=== PATIENT | male | born 1940 | race African-American/Black ===

== ENCOUNTER 2018-03-13 08:08 | Inpatient (IN) ==
[2018-03-16] MEDS ORDERED: Naloxone Inj 0.4 MG/ML Vial IV.PUSH PRN (01:08)
[2018-03-16] MEDS ORDERED: Bisacodyl 10 MG Supp RECTAL PRN (01:09)
[2018-03-16] MEDS ORDERED: Melatonin 5 MG Tablet PO PRN (01:16)
[2018-03-16] MEDS ORDERED: Dextrose 50% in Water 50 ML Vial IV.PUSH PRN (01:22)
[2018-03-16] MEDS: Piperacil/Tazo 3.375 GM Premix 50 ML IV.SIG SCH ×3 (02:32→17:54)
[2018-03-16] MEDS ORDERED: Furosemide 40 MG Tablet PO SCH (09:00)
[2018-03-16] MEDS: Azithromycin Inj 500 MG in Sodium Chlor 0.9% Inj 250 ML IV.SIG SCH (09:40)
[2018-03-16] MEDS: Carvedilol 6.25 MG Tablet PO SCH ×2 (09:41→22:23)
[2018-03-16] MEDS: Lactobacillus Acidophilus/L. Spores Tablet PO SCH ×3 (09:42→17:54)
[2018-03-16] MEDS: Pantoprazole Sodium 20 MG DR Tablet PO SCH (09:42)
[2018-03-16] MEDS: Docusate Sodium 100 MG Capsule PO SCH ×2 (09:42→22:23)
[2018-03-16] MEDS: Baclofen 10 MG Tablet PO SCH ×3 (09:42→17:54)
[2018-03-16] MEDS: Multivitamin/Minerals Therapeutic Tablet PO SCH (09:43)
[2018-03-16] MEDS: Polysaccharide Iron Complex 150 MG Capsule PO SCH (09:43)
[2018-03-16] MEDS: predniSONE 20 MG Tablet PO SCH ×2 (09:44→22:23)
[2018-03-16] MEDS: Insulin NovoLOG Aspart Correctional Sugar Inj SQ SCH ×4 (09:59→22:20)
--- NOTE | 2018-03-16 10:06 | P.PN ---
Subjective Interval history: Nursing denies any deterioration since last night and reports that from. Time to time the patient takes his mask off and appears to be saturating at 90-92%. No clear record that the patient was actually being weaned as instructed since yesterday. Physical Exam Vital signs: Vital Signs 03/16/18 03:01 03/16/18 04:26 03/16/18 08:00 Temperature 99.2 F 98.2 F Pulse Rate 76 63 69 Respiratory Rate 20 16 16 Blood Pressure 139/65 154/67 H Pulse Oximetry 93 L 94 L Intake & Output 03/15/18 03/16/18 03/16/18 18:59 06:59 18:59 Intake Total 290 / 290 Output Total 500 / 500 Balance -210 / -210 Weight 70.1 kg Intake: IV 50 / 50 Zosyn 3.375 GM Premix 50 ML @ 50 / 50 100 mls/hr IV.SIG Q8H [facility] Rx#: [id number] Oral 240 / 240 Output: Urine 500 / 500 Narrative: Still has awfully diminished breath sounds bilaterally even when I instructed patient to take a deep breath to which she does cooperate disability No lower extremity edema on the left lower leg, wearing the Vent[facility] mask [facility] on his face Results - Labs CBC & Chem 7: 03/15/18 12:30 03/17/18 12:10 Laboratory Results - last 24 hr 03/13/18 03/13/18 03/13/18 08:24 08:24 08:24 WBC RBC Hgb Hct MCV MCH MCHC RDW Plt Count MPV Neut % (Auto) Lymph % (Auto) [place] % (Auto) Eos % (Auto) Baso % (Auto) Neut # (Auto) Lymph # (Auto) [place] # (Auto) Eos # (Auto) Baso # (Auto) CBC Comment PT 10.0 INR 1.0 APTT 24.0 L Sodium 147 H Potassium 4.1 Chloride 106 Carbon Dioxide 32.9 H Anion Gap 8 BUN 27 H Creatinine 1.69 H Estimated GFR 48 L POC Glucose Random Glucose 127 H Lactic Acid 1.1 Calcium 8.5 Phosphorus Magnesium Total Bilirubin 0.3 AST 16 ALT 14 Alkaline Phosphatase 118 H Troponin I 0.02 B-Natriuretic Peptide Total Protein 7.2 Albumin 2.7 L 03/13/18 03/14/18 03/14/18 08:24 13:15 20:30 WBC 8.6 RBC 4.50 Hgb 14.3 Hct 45.7 MCV 101.7 H MCH 31.9 MCHC 31.4 L RDW 16.5 Plt Count 206 MPV 8.7 Neut % (Auto) 86.3 H Lymph % (Auto) 6.0 L [place] % (Auto) 6.6 Eos % (Auto) 0.2 Baso % (Auto) 0.9 Neut # (Auto) 7.4 Lymph # (Auto) 0.5 L [place] # (Auto) 0.6 Eos # (Auto) 0.0 Baso # (Auto) 0.1 CBC Comment DIFF FINAL PT INR APTT Sodium 149 H Potassium 4.6 Chloride 109 H Carbon Dioxide 29.9 Anion Gap 10 BUN 35 H Creatinine 1.71 H Estimated GFR 47 L POC Glucose Random Glucose 117 H Lactic Acid Calcium 8.3 L Phosphorus Magnesium Total Bilirubin 0.2 AST 26 ALT 13 Alkaline Phosphatase 87 Troponin I B-Natriuretic Peptide 62 Total Protein 6.2 L D Albumin 2.0 L D 03/15/18 03/15/18 03/16/18 12:30 12:30 09:37 WBC 7.0 RBC 3.77 L Hgb 12.0 L Hct 37.9 L MCV 100.5 H MCH 31.9 MCHC 31.8 L RDW 16.4 Plt Count 171 MPV 8.9 Neut % (Auto) 80.3 H Lymph % (Auto) 11.6 [place] % (Auto) 7.7 Eos % (Auto) 0.0 Baso % (Auto) 0.4 Neut # (Auto) 5.6 Lymph # (Auto) 0.8 L [place] # (Auto) 0.5 Eos # (Auto) 0.0 Baso # (Auto) 0.0 CBC Comment DIFF FINAL PT INR APTT Sodium 149 H Potassium 4.6 Chloride 109 H Carbon Dioxide 31.9 Anion Gap 8 BUN 44 H Creatinine 1.97 H Estimated GFR 40 L POC Glucose 122 H Random Glucose 98 Lactic Acid Calcium 8.3 L Phosphorus 4.5 Magnesium 2.2 Total Bilirubin AST ALT Alkaline Phosphatase Troponin I B-Natriuretic Peptide Total Protein Albumin 2.1 L Assessment and Plan - Plan 78-year-old male admitted secondary to respiratory distress found to have healthcare associated pneumonia //Healthcare associated pneumonia //Acute on chronic hypoxic respiratory failure Zosyn Azithromycin Oxygen support Monitor for improvement of symptoms Continue oxygen supplementation as needed, try to wean down to home baseline which is unclear what it is at this point, daughter does not know. ordering procalcitonin, if neg dc abx //Suspected CHF exacerbation. = Echocardiogram results indicate that the study is very technically difficult with no quantified ejection fraction, however tank riveter feels that the ejection fraction may be close to normal //Acute kidney injury Continues to worsen, I will stop the oral Lasix and lisinopril, and consult nephrology //Diabetes mellitus type 2 Follow blood sugars Insulin sliding scale Diabetic diet //Hypertension Continue baseline treatment //Dementia Report of care Continue Namenda DVT prophylaxis lovenox
--- NOTE | 2018-03-16 11:25 | XR ---
EXAM DATE: 03/16/2018 11:22 AM EDT AGE/SEX: 78 years / Male INDICATIONS: Shortness of breath. CLINICAL DATA: This is the patient's initial encounter. Patient reports that signs and symptoms have been present for 1 day and indicates a pain score of Nonresponsive. MEDICAL/SURGICAL HISTORY: . Hypertension. Chronic obstructive pulmonary disease. Congestive hea rt failure. Diabetes. . Right leg amputation. Cervical fusion. COMPARISON: [facility] – [place], CHEST SINGLE AP, 03/13/2018. . FINDINGS: Heart is enlarged. Moderate bibasilar parenchymal changes evident. There is no failure. There is no p neumothorax. Evidence for previous spine surgery is noted. CONCLUSION: Compensated cardiomegaly with minimal bibasilar parental changes. There has been some improvement wit h better aeration of the bases.. Electronically signed by: Jose El MD 03/16/2018 11:24 AM EDT
--- NOTE | 2018-03-16 12:06 | P.CONNP ---
<Anastacia Talamantes - Last Filed: 03/16/18 11:37> History of Present Illness Service: Nephrology Consult date: 03/16/18 Requesting Physician: Christopher Sexton Reason for Consult: Acute kidney injury Primary Care Provider: UNKNOWN History of Present Illness: Patient is a 78 year old male with a past medical history of diabetes, COPD, Hypertension, sleep apnea, osteoarthritis, and dementia. Presented to emergency room with increasing respiratory distress and has found to have pneumonia. Nephrology is consulted for acute kidney injury with a creatinine of 1.97 and hypernatremia with a sodium level of 149. Difficult to obtain history from patient from current cognitive status. In records patient has a creatinine under 1 in 2-015. Acute kidney injury could possibly be prerenal from poor intake and diuresis. Review of Systems Patient with no complaints but has advanced dementia PMFSH - History History Provided By: Patient, Medical Record - Medical History Medical History: Medical History (Last Updated 03/16/18 @ 11:50 by THELMA Romo) Amputated right leg COPD (chronic obstructive pulmonary disease) Dementia Diabetes Hypertension Osteoarthritis - Surgical History Surgical History: Surgical History (Last Updated 03/16/18 @ 11:48 by THELMA Romo) S/P cervical spinal fusion Medications and Allergies Allergies Allergy/AdvReac Type Severity Reaction Status Date / Time No Known Allergies Allergy Uncoded 12/23/14 06:30 Home Medications Medication Instructions Recorded Confirmed Type aspirin 81 mg PO DAILY 03/15/18 03/15/18 History baclofen 10 mg PO TID 03/15/18 03/15/18 History bisacodyl [Dulcolax (bisacodyl)] 10 mg MN DAILY PRN 03/15/18 03/15/18 History carvedilol 6.25 mg PO BID 03/15/18 03/15/18 History cholecalciferol (vitamin D3) 1,000 unit PO DAILY 03/15/18 03/15/18 History clonidine 1 patch TRANSDERMAL WEEKLY 03/15/18 03/15/18 History docusate sodium 100 mg PO BID 03/15/18 03/15/18 History furosemide 40 mg PO DAILY 03/15/18 03/15/18 History gabapentin 300 mg PO TID 03/15/18 03/15/18 History ipratropium-albuterol 3 ml INHALATION Q6H PRN 03/15/18 03/15/18 History iron ps [id number] acid 1 cap PO DAILY 03/15/18 03/15/18 History lactulose 10 g PO DAILY PRN 03/15/18 03/15/18 History lisinopril 40 mg PO DAILY 03/15/18 03/15/18 History magnesium citrate 296 ml PO QAM PRN 03/15/18 03/15/18 History magnesium hydroxide 30 ml PO HS PRN 03/15/18 03/15/18 History melatonin 3 mg PO HS PRN 03/15/18 03/15/18 History memantine 10 mg PO BID 03/15/18 03/15/18 History metformin 500 mg PO BID 03/15/18 03/15/18 History [id number] acid 1 tab PO DAILY 03/15/18 03/15/18 History [Cerovite Advanced Formula] omeprazole 20 mg PO DAILY 03/15/18 03/15/18 History potassium chloride 20 meq PO DAILY 03/15/18 03/15/18 History sodium phosphates 118 ml MN ONCE PRN 03/15/18 03/15/18 History triamcinolone acetonide 1 applic TOPICAL Q12HR 03/15/18 03/15/18 History Active Medications: Active Medications Al Hydroxide/Mg Hydroxide (Milk Of Magnno Liq) 30 ml PO HS PRN PRN Reason: IF NO BM IN 3 DAYS Albuterol (Duoneb Neb (Prn)) 1 ampul NEB Q6HR NEB PRN PRN Reason: SHORTNESS OF BREATH Albuterol (Duoneb Neb (Dhaval)) 1 ampul NEB Q6HR NEB COUNT INCLUDES THE [facility] Last Admin: 03/16/18 10:02 Dose: 1 ampul Aspirin (Ecotrin) 81 mg PO DAILY COUNT INCLUDES THE [facility] Last Admin: 03/16/18 09:41 Dose: 81 mg Baclofen (Lioresal) 10 mg PO TID COUNT INCLUDES THE [facility] Last Admin: 03/16/18 09:42 Dose: 10 mg Bisacodyl (Dulcolax Supp) 10 mg RECTAL DAILY PRN PRN Reason: IF NOT RESULTS W/ MILK OF MAG Carvedilol (Coreg) 6.25 mg PO BID COUNT INCLUDES THE [facility] Last Admin: 03/16/18 09:41 Dose: 6.25 mg Dextrose (D50w Vial) 50 ml IV.PUSH UNSCH PRN PRN Reason: PER HYPOGLYCEMIA PROTOCOL Docusate Sodium (Colace) 100 mg PO BID COUNT INCLUDES THE [facility] Last Admin: 03/16/18 09:42 Dose: 100 mg Glucagon (Glucagon Inj) 1 mg OTHER PRN PRN PRN Reason: for Hypoglycemia Protocol Azithromycin 500 mg/ Sodium (Chloride) 250 mls @ 250 mls/hr IV.SIG Q24H COUNT INCLUDES THE [facility] Last Admin: 03/16/18 09:40 Dose: 150 mls/hr Piperacillin/Tazobactam/Dextrose (Zosyn 3.375 Gm Premix) 50 mls @ 100 mls/hr IV.SIG Q8H COUNT INCLUDES THE [facility] Last Admin: 03/16/18 11:07 Dose: 100 mls/hr Insulin Aspart (Novolog Insulin Suppl Scale Inj) 0 unit SQ ACHS COUNT INCLUDES THE [facility]; Protocol Last Admin: 03/16/18 09:59 Dose: Not Given Lactobacillus Acidophilus (Lactinex) 1 tab PO TID COUNT INCLUDES THE [facility] Last Admin: 03/16/18 09:42 Dose: 1 tab Lactulose (Lactulose Liq) 10 ml PO DAILY PRN PRN Reason: CONSTIPATION Melatonin (Melatonin) 5 mg PO HS PRN PRN Reason: INSOMNIA Memantine (Namenda) 10 mg PO BID COUNT INCLUDES THE [facility] Last Admin: 03/16/18 09:41 Dose: 10 mg Multivitamins/Minerals (Theragran-M) 1 tab PO DAILY COUNT INCLUDES THE [facility] Last Admin: 03/16/18 09:43 Dose: 1 tab Naloxone HCl (Narcan Inj) 0.4 mg IV.PUSH UNSCH PRN PRN Reason: SEE LABEL COMMENTS Ondansetron HCl (Zofran Odt) 4 mg PO Q6H PRN PRN Reason: NAUSEA OR VOMITING Pantoprazole Sodium (Protonix) 20 mg PO DAILY COUNT INCLUDES THE [facility] Last Admin: 03/16/18 09:42 Dose: 20 mg Polysaccharide Iron Complex (Nu-Iron) 150 mg PO DAILY COUNT INCLUDES THE [facility] Last Admin: 03/16/18 09:43 Dose: 150 mg Potassium Chloride (K-Dur) 20 meq PO DAILY COUNT INCLUDES THE [facility] Last Admin: 03/16/18 09:42 Dose: 20 meq Prednisone (Deltasone) 20 mg PO BID COUNT INCLUDES THE [facility] Last Admin: 03/16/18 09:44 Dose: 20 mg Sodium Chloride (Ns Flush) 2 ml IV.FLUSH UNSCH PRN PRN Reason: FLUSH AFTER USING IV ACCESS Sodium Chloride (Ns Flush) 2 ml IV.FLUSH BID COUNT INCLUDES THE [facility] Last Admin: 03/16/18 09:42 Dose: 2 ml Triamcinolone Acetonide (Aristocort 0.1% Cream) 1 applicatio TOPICAL Q12HR COUNT INCLUDES THE [facility] Last Admin: 03/16/18 09:44 Dose: 1 applicatio Vitamin D (Vitamin D3) 1,000 unit PO DAILY COUNT INCLUDES THE [facility] Last Admin: 03/16/18 09:42 Dose: 1,000 unit Exam Vital signs: Vital Signs 03/16/18 03:01 03/16/18 04:26 03/16/18 08:00 Temperature 99.2 F 98.2 F Pulse Rate 76 63 69 Respiratory Rate 20 16 16 Blood Pressure 139/65 154/67 H Pulse Oximetry 93 L 94 L 03/16/18 10:05 Temperature Pulse Rate 80 Respiratory Rate 16 Blood Pressure Pulse Oximetry 98 Intake & Output 03/15/18 03/16/18 03/16/18 18:59 06:59 18:59 Intake Total 290 / 290 Output Total 500 / 500 Balance -210 / -210 Weight 70.1 kg Intake: IV 50 / 50 Zosyn 3.375 GM Premix 50 ML @ 50 / 50 100 mls/hr IV.SIG Q8H COUNT INCLUDES THE [facility] Rx#: [id number] Oral 240 / 240 Output: Urine 500 / 500 - Constitutional no acute distress - Routine HEENT Exam Head: Present: normocephalic ENT: Present: mucous membranes dry - Routine Neck Exam Present: supple. Absent: JVD - Routine Respiratory Exam Present: decreased breath sounds. Absent: respiratory distress, wheezes, crackles - Routine Cardiovascular Exam Present: RRR - Routine Abdominal Exam Present: soft, normoactive bowel sounds - Routine Extremities Exam Present: amputation - Routine Skin Exam Present: wounds - Routine Neurological Exam lethargic Results - Lab Results 03/15/18 12:30 03/15/18 12:30 Most recent lab results Calcium 8.3 MG/DL (8.5-10.1) L 03/15/18 12:30 Phosphorus 4.5 MG/DL (2.5-4.9) 03/15/18 12:30 Magnesium 2.2 MG/DL (1.5-2.5) 03/15/18 12:30 - Image Kidney/bladder ultrasound: pending Assessment and Plan - Assessment (1) Acute kidney injury Code(s): N17.9 - Acute kidney failure, unspecified Status: Acute Plan: Acute kidney injury with a creatinine of 1.97 and hypernatremia with a sodium level of 149. In records patient has a creatinine under 1 in 2015. Acute kidney injury could possibly be prerenal from poor intake and diuresis Will order UA, urine osmolarity, and urine sodium Renal Ultrasound Avoid nephrotoxic agents Continue to hold Lasix Will order gently hydration as patient appears dry (2) Hypernatremia Code(s): E87.0 - Hyperosmolality and hypernatremia Status: Acute Plan: Continue to hold lasix Gently hydration ordered D5 09/19 NS (3) Hypertension Code(s): I10 - Essential (primary) hypertension Status: Acute Plan: Continue coreg Well controlled will monitor (4) Diabetes Code(s): E11.9 - Type 2 diabetes mellitus without complications Status: Acute Plan: Maintain blood sugar at 140 mg/dl to 180 mg/dl <Tracey Nelson - Last Filed: 03/16/18 16:39> History of Present Illness Primary Care Provider: UNKNOWN [facility] - Medical History Medical History: Medical History (Last Updated 03/16/18 @ 11:50 by THELMA Romo) Amputated right leg COPD (chronic obstructive pulmonary disease) Dementia Diabetes Hypertension Osteoarthritis - Surgical History Surgical History: Surgical History (Last Updated 03/16/18 @ 11:48 by THELMA Romo) S/P cervical spinal fusion Medications and Allergies Active Medications: Active Medications Al Hydroxide/Mg Hydroxide (Milk Of Magnno Liq) 30 ml PO HS PRN PRN Reason: IF NO BM IN 3 DAYS Albuterol (Duoneb Neb (Prn)) 1 ampul NEB Q6HR NEB PRN PRN Reason: SHORTNESS OF BREATH Albuterol (Duoneb Neb (Dhaval)) 1 ampul NEB Q6HR NEB [facility] Last Admin: 03/16/18 16:29 Dose: 1 ampul Aspirin (Ecotrin) 81 mg PO DAILY [facility] Last Admin: 03/16/18 09:41 Dose: 81 mg Baclofen (Lioresal) 10 mg PO TID [facility] Last Admin: 03/16/18 13:44 Dose: 10 mg Bisacodyl (Dulcolax Supp) 10 mg RECTAL DAILY PRN PRN Reason: IF NOT RESULTS W/ MILK OF MAG Carvedilol (Coreg) 6.25 mg PO BID COUNT INCLUDES THE [facility] Last Admin: 03/16/18 09:41 Dose: 6.25 mg Dextrose (D50w Vial) 50 ml IV.PUSH UNSCH PRN PRN Reason: PER HYPOGLYCEMIA PROTOCOL Docusate Sodium (Colace) 100 mg PO BID COUNT INCLUDES THE [facility] Last Admin: 03/16/18 09:42 Dose: 100 mg Glucagon (Glucagon Inj) 1 mg OTHER PRN PRN PRN Reason: for Hypoglycemia Protocol Dextrose/Sodium Chloride (D5w/1/4 Ns Inj) 1,000 mls @ 42 mls/hr IV.CONT .[id number] COUNT INCLUDES THE [facility] Last Admin: 03/16/18 13:43 Dose: 42 mls/hr Azithromycin 500 mg/ Sodium (Chloride) 250 mls @ 250 mls/hr IV.SIG Q24H COUNT INCLUDES THE [facility] Last Admin: 03/16/18 09:40 Dose: 150 mls/hr Piperacillin/Tazobactam/Dextrose (Zosyn 3.375 Gm Premix) 50 mls @ 100 mls/hr IV.SIG Q8H COUNT INCLUDES THE [facility] Last Admin: 03/16/18 11:07 Dose: 100 mls/hr Insulin Aspart (Novolog Insulin Suppl Scale Inj) 0 unit SQ ACHS COUNT INCLUDES THE [facility]; Protocol Last Admin: 03/16/18 13:40 Dose: 3 unit Lactobacillus Acidophilus (Lactinex) 1 tab PO TID COUNT INCLUDES THE [facility] Last Admin: 03/16/18 13:44 Dose: 1 tab Lactulose (Lactulose Liq) 10 ml PO DAILY PRN PRN Reason: CONSTIPATION Melatonin (Melatonin) 5 mg PO HS PRN PRN Reason: INSOMNIA Memantine (Namenda) 10 mg PO BID COUNT INCLUDES THE [facility] Last Admin: 03/16/18 09:41 Dose: 10 mg Multivitamins/Minerals (Theragran-M) 1 tab PO DAILY COUNT INCLUDES THE [facility] Last Admin: 03/16/18 09:43 Dose: 1 tab Naloxone HCl (Narcan Inj) 0.4 mg IV.PUSH UNSCH PRN PRN Reason: SEE LABEL COMMENTS Ondansetron HCl (Zofran Odt) 4 mg PO Q6H PRN PRN Reason: NAUSEA OR VOMITING Pantoprazole Sodium (Protonix) 20 mg PO DAILY COUNT INCLUDES THE [facility] Last Admin: 03/16/18 09:42 Dose: 20 mg Polysaccharide Iron Complex (Nu-Iron) 150 mg PO DAILY COUNT INCLUDES THE [facility] Last Admin: 03/16/18 09:43 Dose: 150 mg Potassium Chloride (K-Dur) 20 meq PO DAILY COUNT INCLUDES THE [facility] Last Admin: 03/16/18 09:42 Dose: 20 meq Prednisone (Deltasone) 20 mg PO BID COUNT INCLUDES THE [facility] Last Admin: 03/16/18 09:44 Dose: 20 mg Sodium Chloride (Ns Flush) 2 ml IV.FLUSH UNSCH PRN PRN Reason: FLUSH AFTER USING IV ACCESS Sodium Chloride (Ns Flush) 2 ml IV.FLUSH BID COUNT INCLUDES THE [facility] Last Admin: 03/16/18 09:42 Dose: 2 ml Triamcinolone Acetonide (Aristocort 0.1% Cream) 1 applicatio TOPICAL Q12HR COUNT INCLUDES THE [facility] Last Admin: 03/16/18 09:44 Dose: 1 applicatio Vitamin D (Vitamin D3) 1,000 unit PO DAILY COUNT INCLUDES THE [facility] Last Admin: 03/16/18 09:42 Dose: 1,000 unit Exam Vital signs: Vital Signs 03/16/18 03:01 03/16/18 04:26 03/16/18 08:00 Temperature 99.2 F 98.2 F Pulse Rate 76 63 69 Respiratory Rate 20 16 16 Blood Pressure 139/65 154/67 H Pulse Oximetry 93 L 94 L 03/16/18 10:00 03/16/18 10:05 03/16/18 12:00 Temperature 97.8 F Pulse Rate 80 67 Respiratory Rate 16 17 Blood Pressure 132/60 Pulse Oximetry 94 L 98 94 L 03/16/18 16:32 Temperature Pulse Rate 79 Respiratory Rate 16 Blood Pressure Pulse Oximetry Intake & Output 03/15/18 03/16/18 03/16/18 18:59 06:59 18:59 Intake Total 290 / 290 Output Total 500 / 500 Balance -210 / -210 Weight 70.1 kg Intake: IV 50 / 50 Zosyn 3.375 GM Premix 50 ML @ 50 / 50 100 mls/hr IV.SIG Q8H COUNT INCLUDES THE [facility] Rx#: [id number] Oral 240 / 240 Output: Urine 500 / 500 Results - Lab Results 03/15/18 12:30 03/16/18 12:30 Most recent lab results Calcium 8.3 mg/dL (8.5-10.1) L 03/16/18 12:30 Phosphorus 4.5 MG/DL (2.5-4.9) 03/15/18 12:30 Magnesium 2.2 MG/DL (1.5-2.5) 03/15/18 12:30 Assessment and Plan - Assessment (1) Acute kidney injury Code(s): N17.9 - Acute kidney failure, unspecified Status: Acute Plan: Patient seen and examined, agree with above. Patient most likely has chronic kidney disease and GABRIELLA. Agree with gentle hydration. (2) Hypernatremia Code(s): E87.0 - Hyperosmolality and hypernatremia Status: Acute (3) Hypertension Code(s): I10 - Essential (primary) hypertension Status: Acute (4) Diabetes Code(s): E11.9 - Type 2 diabetes mellitus without complications Status: Acute
--- NOTE | 2018-03-16 12:48 | US ---
EXAM DATE: 03/16/2018 12:42 PM EDT AGE/SEX: 78 years / Male INDICATIONS: Increased lab values. CLINICAL DATA: This is the patient's initial encounter. Patient reports that signs and symptoms have been present for 1 day and indicates a pain score of 1/10. MEDICAL/SURGICAL HISTORY: . Dementia. CHF. CAD. HTN. COPD. Sleep apnea. BPH. GERD. Arthritis. O steoporosis. Diabetes. Depression. Anxiety. Anemia. Fusion, cervical. Right above the knee amputatio n. COMPARISON: [facility], MR LUMBAR SPINE W AND W/O CONTRAST, 12/10/2008. . MEASUREMENTS: Right Kidney:__6.7 x 3.5 x 4.4 cm Left Kidney:__not visualized Not visualized. FINDINGS: Limited exam by body habitus. Unable to visualize left kidney and spleen. Right Kidney: Right kidney is small and echogenic. I don't see hydronephrosis. Left Kidney: Not visua lized. Bladder: Within normal limits given the degree of distension. Other: None. CONCLUSION: 1. Very limited exam. Small echogenic right kidney without hydronephrosis. 2. Left kidney not visualized. Electronically signed by: Jose El MD 03/16/2018 12:46 PM EDT
[2018-03-16] MEDS: Dextrose 5%/NaCl 0.225% Inj 1,000 ML IV.CONT SCH (13:43)
[2018-03-16 14:25] LABS: Calcium 8.3 mg/dL (8.5-10.1); Carbon Dioxide 34.6 meq/L (21.0-32.0); Potassium 4.3 meq/L (3.5-5.1)
[2018-03-17] MEDS: Piperacil/Tazo 3.375 GM Premix 50 ML IV.SIG SCH ×3 (00:33→17:09)
[2018-03-17] MEDS: Insulin NovoLOG Aspart Correctional Sugar Inj SQ SCH ×3 (08:11→17:11)
--- NOTE | 2018-03-17 09:35 | P.PNNP ---
Subjective Interval history: Patient appears more awake today. IVF are infusing and labs are pending. Denies any shortness of breath. No edema. <Anastacia Talamantes - Last Filed: 03/17/18 09:36> Physical Exam Vital signs: Vital Signs 03/16/18 10:00 03/16/18 10:05 03/16/18 12:00 Temperature 97.8 F Pulse Rate 80 67 Respiratory Rate 16 17 Blood Pressure 132/60 Pulse Oximetry 94 L 98 94 L 03/16/18 16:00 03/16/18 16:32 03/16/18 20:00 Temperature 98.1 F 99.4 F Pulse Rate 77 79 78 Respiratory Rate 16 16 18 Blood Pressure 139/62 144/77 H Pulse Oximetry 94 L 93 L 03/16/18 20:11 03/17/18 00:21 03/17/18 05:00 Temperature 98.9 F Pulse Rate 80 67 65 Respiratory Rate 20 18 16 Blood Pressure 147/67 H Pulse Oximetry 93 L 98 03/17/18 08:00 Temperature 98.3 F Pulse Rate Respiratory Rate 18 Blood Pressure 177/79 H Pulse Oximetry Intake & Output 03/16/18 03/17/18 03/17/18 18:59 06:59 18:59 Intake Total 50 / 50 350 / 350 240 / 240 Balance 50 / 50 350 / 350 240 / 240 Intake: IV 50 / 50 50 / 50 Zosyn 3.375 GM Premix 50 ML @ 50 / 50 50 / 50 100 mls/hr IV.SIG Q8H [facility] Rx#: [id number] Oral 300 / 300 240 / 240 Other: # Voids 2 - Constitutional no acute distress - Routine HEENT Exam Head: Present: normocephalic - Routine Neck Exam Absent: JVD - Routine Respiratory Exam Present: decreased breath sounds. Absent: rales, rhonchi, wheezes - Routine Cardiovascular Exam Present: RRR. Absent: murmur - Routine Abdominal Exam Present: soft, normoactive bowel sounds - Routine Extremities Exam Present: amputation. Absent: edema - Routine Skin Exam Present: dry, warm - Routine Neurological Exam Present: alert - Detailed Neurological Exam: Coma Scale Eye Opening: Spontaneous <Anastacia Talamantes - Last Filed: 03/17/18 09:36> Vital signs: Vital Signs 03/17/18 00:21 03/17/18 05:00 03/17/18 08:00 Temperature 98.9 F 98.3 F Pulse Rate 67 65 Respiratory Rate 18 16 18 Blood Pressure 147/67 H 177/79 H Pulse Oximetry 93 L 98 03/17/18 09:33 03/17/18 09:34 03/17/18 12:00 Temperature 98.5 F Pulse Rate 68 68 Respiratory Rate 20 18 Blood Pressure 145/67 H Pulse Oximetry 93 L 93 L 03/17/18 16:00 03/17/18 16:27 Temperature 98.4 F Pulse Rate 63 86 Respiratory Rate 16 18 Blood Pressure 155/62 H Pulse Oximetry 93 L Intake & Output 03/17/18 03/17/18 03/18/18 06:59 18:59 06:59 Intake Total 400 / 400 2580 / 2580 Output Total 0 / 0 Balance 400 / 400 2580 / 2580 Intake: IV 100 / 100 1000 / 1000 D5W/1/4 NS Inj 1,000 ML @ 42 1000 / 1000 mls/hr IV.CONT .[id number] [facility] Rx# :[id number] Zosyn 3.375 GM Premix 50 ML @ 100 / 100 100 mls/hr IV.SIG Q8H [facility] Rx#: [id number] Oral 300 / 300 1580 / 1580 Output: Stool 0 / 0 Other: # Voids 4 # Bowel Movements 0 <Matthew Nelson Q - Last Filed: 03/17/18 22:10> Assessment and Plan - Assessment (1) Acute kidney injury Code(s): N17.9 - Acute kidney failure, unspecified Status: Acute Plan: Acute kidney injury with a creatinine of 1.97 and hypernatremia with a sodium level of 149 on day of consult In records patient has a creatinine under 1 in 2015. Acute kidney injury could possibly be prerenal from poor intake and diuresis Renal Ultrasound limited small echogenic right kidney with no hydronephrosis, left kidney not visualized. Will order UA, urine osmolarity, and urine sodium are pending Avoid nephrotoxic agents Continue to hold Lasix Continue gently hydration labs are pending for today (2) Hypernatremia Code(s): E87.0 - Hyperosmolality and hypernatremia Status: Acute Plan: Continue to hold lasix Continue gently hydration ordered D5 1/4 NS Labs are pending (3) Hypertension Code(s): I10 - Essential (primary) hypertension Status: Acute Plan: Continue coreg will monitor (4) Diabetes Code(s): E11.9 - Type 2 diabetes mellitus without complications Status: Acute Plan: Maintain blood sugar at 140 mg/dl to 180 mg/dl <Anastacia Talamantes - Last Filed: 03/17/18 09:36> - Assessment (1) Acute kidney injury Code(s): N17.9 - Acute kidney failure, unspecified Status: Acute (2) Hypernatremia Code(s): E87.0 - Hyperosmolality and hypernatremia Status: Acute (3) Hypertension Code(s): I10 - Essential (primary) hypertension Status: Acute (4) Diabetes Code(s): E11.9 - Type 2 diabetes mellitus without complications Status: Acute - Attending Attestation Patient seen and examined, agree with above. Creatinine is better. <Tracey Nelson - Last Filed: 03/17/18 22:10>
[2018-03-17] MEDS: Lactobacillus Acidophilus/L. Spores Tablet PO SCH ×2 (10:03→13:43)
[2018-03-17] MEDS: Multivitamin/Minerals Therapeutic Tablet PO SCH (10:03)
[2018-03-17] MEDS: Carvedilol 6.25 MG Tablet PO SCH (10:04)
[2018-03-17] MEDS: Baclofen 10 MG Tablet PO SCH ×2 (10:04→13:43)
[2018-03-17] MEDS: Pantoprazole Sodium 20 MG DR Tablet PO SCH (10:04)
[2018-03-17] MEDS: Docusate Sodium 100 MG Capsule PO SCH (10:04)
[2018-03-17] MEDS: Polysaccharide Iron Complex 150 MG Capsule PO SCH (10:10)
[2018-03-17] MEDS: predniSONE 20 MG Tablet PO SCH (10:11)
[2018-03-17] MEDS: Azithromycin Inj 500 MG in Sodium Chlor 0.9% Inj 250 ML IV.SIG SCH (10:45)
[2018-03-17 13:17] LABS: Calcium 8.2 mg/dL (8.5-10.1); Carbon Dioxide 35.9 meq/L (21.0-32.0); Potassium 4.6 meq/L (3.5-5.1)
[2018-03-17] MEDS: Dextrose 5%/NaCl 0.225% Inj 1,000 ML IV.CONT SCH (13:32)
--- NOTE | 2018-03-17 14:08 | P.DS ---
Date of admission: 03/13/18 09:58 Primary care physician: UNKNOWN Brief History from admission: Mr. Gentile is a 78-year-old male. She lives chronically in a nursing home facility. He was sent to the hospital today due to progressive respiratory distress. He is found to be hypoxic in respiratory distress. Workup reveals a pneumonia which would be a healthcare associated acquired pneumonia. Treatments have been started. Currently patient is on a Venturi mask which is a downgrade from a nonrebreather. He saturating fine when seen. He is not communicating at baseline which makes it difficult to obtain any history. No other acute concerns are present today. He does not meet septic criteria. DS: Diagnosis - Discharge Diagnosis (1) Pneumonia Status: Acute (2) Acute kidney injury Status: Acute DS: Summary Hospital Course: Patient was admitted, started on antibiotics for possible pneumonia and diuresis. Patient's respiratory status improved and back down to baseline 2-3 L via nasal cannula. Echocardiogram was inconclusive for definitive ejection fraction, whereas the patient did have an enlarged heart on chest x-ray. Patient's renal function was worsening, diuretics were held. Eventually renal function improved and low-dose Lasix was restarted as needed for swelling. Patient has met maximal benefit from hospitalization is clinically stable for discharge. - Time Spent with Patient Total time spent providing and/or coordinating discharge services: Less than 30 minutes Exam Vital signs: Vital Signs 03/16/18 16:00 03/16/18 16:32 03/16/18 20:00 Temperature 98.1 F 99.4 F Pulse Rate 77 79 78 Respiratory Rate 16 16 18 Blood Pressure 139/62 144/77 H Pulse Oximetry 94 L 93 L 03/16/18 20:11 03/17/18 00:21 03/17/18 05:00 Temperature 98.9 F Pulse Rate 80 67 65 Respiratory Rate 20 18 16 Blood Pressure 147/67 H Pulse Oximetry 93 L 98 03/17/18 08:00 03/17/18 09:33 03/17/18 09:34 Temperature 98.3 F Pulse Rate 68 Respiratory Rate 18 20 Blood Pressure 177/79 H Pulse Oximetry 93 L 03/17/18 12:00 Temperature 98.5 F Pulse Rate 68 Respiratory Rate 18 Blood Pressure 145/67 H Pulse Oximetry 93 L Intake & Output 03/16/18 03/17/18 03/17/18 18:59 06:59 18:59 Intake Total 300 / 300 400 / 400 1240 / 1240 Balance 300 / 300 400 / 400 1240 / 1240 Intake: IV 300 / 300 100 / 100 1000 / 1000 D5W/1/4 NS Inj 1,000 ML @ 42 1000 / 1000 mls/hr IV.CONT .[id number] [facility] Rx# :[id number] Azithromycin Inj 500 MG In NS 250 / 250 Inj 250 ML @ 250 mls/hr IV.SIG Q24H [facility] Rx#:[id number] Zosyn 3.375 GM Premix 50 ML @ 50 / 50 100 / 100 100 mls/hr IV.SIG Q8H [facility] Rx#: [id number] Oral 300 / 300 240 / 240 Other: # Voids 2 Narrative: Coarse breath sounds bilaterally, unlabored breathing, on nasal cannula Results Procedures completed during hospitalization: . Labs on day of discharge: Labs from last 24 hours 03/17/18 03/17/18 03/17/18 12:15 12:10 07:57 Sodium 142 Potassium 4.6 Chloride 100 Carbon Dioxide 35.9 H Anion Gap 6 BUN 29 H Creatinine 1.35 H Estimated GFR 62 L POC Glucose 124 H 139 H Random Glucose 126 H Calcium 8.2 L Procalcitonin 03/16/18 03/16/18 03/16/18 19:56 17:50 12:30 Sodium Potassium Chloride Carbon Dioxide Anion Gap BUN Creatinine Estimated GFR POC Glucose 158 H 174 H Random Glucose Calcium Procalcitonin 2.8 03/16/18 12:30 Sodium 149 H Potassium 4.3 Chloride 107 Carbon Dioxide 34.6 H Anion Gap 7 BUN 34 H Creatinine 1.72 H Estimated GFR 47 L POC Glucose Random Glucose 209 H Calcium 8.3 L Procalcitonin - Impressions ITS Impressions Abdomen/Bladder Ultrasound 03/16/18 00:00 CONCLUSION: 1. Very limited exam. Small echogenic right kidney without hydronephrosis. 2. Left kidney not visualized. Chest X-Ray 03/16/18 00:00 CONCLUSION: Compensated cardiomegaly with minimal bibasilar parental changes. There has been some improvement with better aeration of the bases.. Discharge Plan - Discharge Disposition Patient Disposition: Discharge to SNF - Discharge Condition Condition: Good - Discharge Order Discharge Orders: Discharge Order (Routine); Ordered 03/17/18 Ordered By: Christopher Sexton - Physicians Team Primary Care Provider: UNKNOWN, Attending Provider: Christopher Sexton Other Providers: Tracey Nelson MD ; [facility],[place] - Rxs /Orders / Referrals /Forms Prescriptions: New azithromycin 250 mg Tablet 250 mg PO DAILY Qty: 2 RF: 0 furosemide [Lasix] 20 mg Tablet 20 mg PO DAILY PRN (Reason: Edema) Qty: 30 RF: 0 levofloxacin [Levaquin] 500 mg Tablet 500 mg PO DAILY Qty: 7 RF: 0 lisinopril 5 mg Tablet 5 mg PO DAILY Qty: 30 RF: 0 Continue aspirin 81 mg Tablet,Delayed Release (Dr/Ec) 81 mg PO DAILY baclofen 10 mg Tablet 10 mg PO TID bisacodyl [Dulcolax (bisacodyl)] 10 mg Suppository [address] DAILY PRN (Reason: Constipation) carvedilol 6.25 mg Tablet 6.25 mg PO BID cholecalciferol (vitamin D3) 1,000 unit Tablet 1,000 unit PO DAILY clonidine 0.1 mg/24 hr Patch Weekly 1 patch TRANSDERMAL WEEKLY docusate sodium 100 mg Capsule 100 mg PO BID gabapentin 300 mg Capsule 300 mg PO TID ipratropium-albuterol 0.5 mg-3 mg(2.5 mg base)/3 mL Solution For Nebulization 3 ml INHALATION Q6H PRN (Reason: Shortness Of Breath) iron ps [id number] acid 150-25-1 mg-mcg-mg Capsule 1 cap PO DAILY lactulose 10 gram/15 mL Solution 10 g PO DAILY PRN (Reason: Constipation) magnesium citrate Solution 296 ml PO QAM PRN (Reason: Constipation) magnesium hydroxide 400 mg/5 mL Suspension 30 ml PO HS PRN (Reason: Constipation) melatonin 3 mg Tablet 3 mg PO HS PRN (Reason: Insomnia) memantine 10 mg Tablet 10 mg PO BID hevnjvsxhdol-maob-rjcmd acid [Cerovite Advanced Formula] 18-400 mg-mcg Tablet 1 tab PO DAILY omeprazole 20 mg Tablet,Delayed Release (Dr/Ec) 20 mg PO DAILY potassium chloride 10 mEq Tablet Extended Release 20 meq PO DAILY sodium phosphates 19-7 gram/118 mL Enema [address] ONCE PRN (Reason: Constipation) triamcinolone acetonide 0.1 % Cream 1 applic TOPICAL Q12HR Discontinued furosemide 40 mg Tablet 40 mg PO DAILY lisinopril 40 mg Tablet 40 mg PO DAILY metformin 500 mg Tablet 500 mg PO BID Referrals: Cost Estimating Manager [Outside] - See Instructions UNKNOWN, [Primary Care Provider] - See Instructions
== END 2018-03-17 17:52 ==
LOC: N07 09:58
PROVIDERS: ADMIT Hospitalist; ATTEND Hospitalist